=== PATIENT | male | born 1970 | race Caucasian/White ===

== ENCOUNTER → 2017-06-28 | Outpatient (CLI) | payer OTHER ==
--- NOTE | 2017-06-28 11:56 | ECHOS ---
STRESS ECHOCARDIOGRAM DATE OF SERVICE: 06/28/2017 MEDICATIONS:: Omeprazole. BASELINE HEART RATE: 81 BASELINE BLOOD PRESSURE: 113/68 MAXIMUM HEART RATE: 161 MAXIMUM BLOOD PRESSURE: 172/79 85% MPHR: 149 100% MPHR: 175 METS: 9.7 MAXIMUM STAGE REACHED: III TOTAL EXERCISE TIME: 8 minutes INDICATIONS: Chest pain. CLINICAL INFORMATION: The patient was exercised for a total period of 8 minutes. A peak heart rate of 161 was achieved. Maximum blood pressure 172/79 mmHg was noted. Resting EKG shows normal sinus rhythm with VT interval and QRS duration and normal ST-T waves. No ST-segment depression suggestive of ischemia is noted. The baseline echocardiographic images reveal normal left ventricular chamber size with normal left ventricular systolic function. In the immediate postexercise periods, normal increase in the wall thickness and contractility is noted. FINAL IMPRESSION: This stress echocardiographic study is negative for stress-induced ischemia. The EKG portion of the stress test is not suggestive of ischemia. MMODL / IJN: [id number] /
== END ==
LOC: RADNMMAIN 09:23
PROVIDERS: ATTEND Family Medicine
DX: R07.9 Chest pain, unspecified (principal)
CPT/HCPCS: 93017; 93350

== ENCOUNTER 2022-04-14 12:44 | Emergency (ER) | payer BC ==
[2022-04-14 13:15] VITALS: BP 145/92; PULSE 67; RESP 16; TEMP 98.1
--- NOTE | 2022-04-14 14:15 | XR ---
Right foot. HISTORY: Trauma. COMPARISON: None. TECHNIQUE: 3 views the right foot were seen. FINDINGS: There are minimally displaced fractures involving the proximal aspects of the third, fourth and fift h metatarsals. There are no focal intraosseous abnormalities. There is mild degeneration of the first tarsometatarsal joint. There is no radiopaque foreign body. IMPRESSION: Fractures involving the proximal aspects of the third, fourth and fifth metatarsals.
--- NOTE | 2022-04-14 15:24 | US ---
EXAMINATION TYPE: US venous doppler duplex LE RT DATE OF EXAM: 04/14/2022 3:06 PM COMPARISON: NONE CLINICAL HISTORY: swelling. lump calf area SIDE PERFORMED: Right TECHNIQUE: The lower extremity deep venous system is examined utilizing real time linear array sonog mk with graded compression, doppler sonography and color-flow sonography. VESSELS IMAGED: Common Femoral Vein Deep Femoral Vein Greater Saphenous Vein * Femoral Vein Popliteal Vein Small Saphenous Vein * Proximal Calf Veins (* superficial vessels) Right Leg: Negative for DVT Grayscale, color doppler, spectral doppler imaging performed of the deep veins of the lower extremiti es. There is normal flow, compressibility, vascular waveforms. Impression: No evidence of right lower extremity DVT from the common femoral vein to the proximal calf veins.
--- NOTE | 2022-04-14 15:27 | ED ---
Lower Extremity Injury HPI - General Chief Complaint: Extremity Injury, Lower Stated Complaint: rt foot injury Time Seen by Provider: 04/14/22 13:46 Source: patient Mode of arrival: ambulatory Limitations: no limitations - History of Present Illness Initial Comments: Patient is a 52-year-old male presenting with chief complaint of right foot and ankle pain and swelling. Patient was on vacation 5 days ago in the , when he twisted his ankle. He was given pain medication in a walking boot, however he has not been compliant. Patient states that at rest the pain is fine but the mall when he goes to move the foot or put any pressure on it there is a out of 10 pain. Located mainly on the dorsal surface of the foot. There has been increased swelling and some new bruising. Denies any numbness, tingling, weakness. - Related Data Allergies Allergy/AdvReac Type Severity Reaction Status Date / Time No Known Allergies Allergy Verified 04/14/22 13:15 Review of Systems ROS Statement: Those systems with pertinent positive or pertinent negative responses have been documented in the HPI. ROS Other: All systems not noted in ROS Statement are negative. Past Medical History Past Medical History: No Reported History History of Any Multi-Drug Resistant Organisms: None Reported Additional Past Surgical History / Comment(s): hand surgery Past Psychological History: No Psychological Hx Reported Smoking Status: Never smoker Past Alcohol Use History: None Reported Past Drug Use History: None Reported General Exam Limitations: no limitations General appearance: alert, in no apparent distress Head exam: Present: atraumatic, normocephalic, normal inspection Eye exam: Present: normal appearance, EOMI. Absent: scleral icterus, p eriorbital swelling Neck exam: Present: normal inspection Right Ankle exam: Present: tenderness, swelling, ecchymosis Foot/Toe exam: Present: tenderness, swelling, ecchymosis Neurovascular tendon exam: Present: no vascular compromise. Absent: sensory deficit Neurological exam: Present: alert, oriented X3, CN II-XII intact Psychiatric exam: Present: normal affect, normal mood Skin exam: Present: warm, dry, intact, normal color. Absent: rash Course Vital Signs 04/14/22 13:11 Temperature 98.1 F Pulse Rate 67 Respiratory 16 Rate Blood Pressure 145/92 O2 Sat by Pulse 97 Oximetry Medical Decision Making - Medical Decision Making Patient is a 52-year-old male presenting with chief complaint of right foot swelling, pain, bruising. Patient injured it while running on vacation about 5 days ago. is also concerned because the patient has a small bump to the calf and would like to rule out DVT. On examination there is tenderness across the ankle and dorsal aspect of the foot. Negative Homans sign, neurovascularly intact. X-ray shows fractures involving the proximal aspects of the third, fourth, and fifth metatarsals. Venous Doppler study shows no evidence of DVT. Patient is placed in posterior leg splint and instructed to follow-up with orthopedics. Follow-up with PCP. Report back to ER with any new or worsening symptoms. Discussed return parameters and answered all questions. Patient conveyed verbal understanding and agreed to the plan. I discussed this case in detail with my attending Dr. Noland Disposition Clinical Impression: Multiple closed fractures of metatarsal bone Disposition: HOME SELF-CARE Condition: Good Instructions (If sedation given, give patient instructions): Foot Fracture in Adults (ED) Additional Instructions: Follow up with orthopedics, call office on Saturday. Report back to ER with any new or worsening symptoms. Take Motrin and Tylenol as needed for pain control. Rest, ice, elevate the foot. Is patient prescribed a controlled substance at d/c from ED?: No Referrals: Connor Hollins DO [Doctor of Osteopathic Medicine] - 04/17/22 Victorino Vee MD [Primary Care Provider] - 04/17/22 Time of Disposition: 16:32
== END 2022-04-14 17:00 | disposition home or self-care (01) ==
LOC: EC 12:44
DX: S92.331A Displaced fracture of third metatarsal bone, right foot, initial encounter for closed fracture (principal); S92.341A Displaced fracture of fourth metatarsal bone, right foot, initial encounter for closed fracture; S92.351A Displaced fracture of fifth metatarsal bone, right foot, initial encounter for closed fracture; X50.1XXA Overexertion from prolonged static or awkward postures, initial encounter
CPT/HCPCS: 99283

== ENCOUNTER → 2024-03-17 | Outpatient (CLI) | payer BC ==
--- NOTE | 2024-04-14 12:58 | US ---
Site ID [facility] Patient Arcadio Castillo ID [id number] 1970 Age/Gender: 54Y, N/A Order # N/A Procedure US RENALS AND BLADDER Date 03/17/2024 4:15:00 PM EXAMINATION TYPE: US renals and bladder DATE OF EXAM: 04/04/2024 COMPARISON: NONE CLINICAL INDICATION: 54 year old with history of hematuria. EXAM MEASUREMENTS: Right Kidney: 10.4 x 5.3 x 5.4 cm Left Kidney: 11.1 x 5.4 x 4.4 cm Right Kidney: wnl Left Kidney: wnl Bladder: wnl Bilateral Jets seen: Yes There is no evidence for hydronephrosis at this point in time. Cortical medullary differentiation is maintained bilaterally. No nephrolithiasis is seen. No masses are identified. The urinary bladder is distended and anechoic. Bilateral ureteral jets are seen. IMPRESSION: No hydronephrosis or ultrasound evidence for renal lesion.
== END | disposition home or self-care (01) ==
LOC: RADUSWWP 03-15 12:00
PROVIDERS: ATTEND Internal Medicine
DX: R31.9 Hematuria, unspecified (principal); R82.89 Other abnormal findings on cytological and histological examination of urine
CPT/HCPCS: 76770

== ENCOUNTER → 2024-07-17 | Outpatient (CLI) | payer BC ==
--- NOTE | 2024-07-17 12:00 | CA ---
Exercise Nuclear Stress Test Report Name: Arcadio Castillo Exam Date: 07/17/2024 09:12 Exam Location: [place] Stress Ht (in): 72 Wt (lb): 194 BSA: 2.10 Ordering Phys: Aditi Damon MD Referring Phys: J CARLOS Technologist: Sam Weber Age: 54 Gender: M : 1970 Procedure CPT: Indications: I21.19 STEMI INVOLVING OTH CORONARY ARTERY OF INFE ICD-10 Codes: Patient History: Medications: Meds past 24 hrs: Pretest Chest Pain: STRESS TEST Adrian Protocol Exercise Duration (min:sec): 09:[address] Depressions (mm): Angina Score: Gaspar Score: Resting HR (bpm): 75 Peak HR (bpm): 149 Resting BP (mmHg): 151 / 90 Peak BP (mmHg): 149 / 88 MPHR: 168 Target HR: 143 % MPHR: 89 METS: 12.4 Total Dose: Peak Dose: Atropine: Double Product: 36085 BP Response: Stress Termination: Reached target heart rate Stress Symptoms: No chest pain or symptoms Stress Summary: ECG ANALYSIS Resting ECG: Stress ECG: CONCLUSIONS Patient underwent exercise stress Cardiolite with a Adrian protocol treadmill stress test. Patient exercised into Stage 3 for a total of 9 minutes and 30 seconds reaching a total of 12.4 METS. Patient's maximum heart rate was 149 which represented 88% age-predicted maximum heart rate. Stress EKG findings: At baseline patient's EKG showed normal sinus rhythm, normal axis, minimal J-point elevation in the inferior leads with no significant ST or T wave abnormalities. At peak exercise, EKG showed no significant change from baseline. Conclusions: 1. Normal EKG response to exercise without evidence of inducible ischemia. 2. Good exercise capacity. 3. Nuclear portion to be reported separately Dr. Alex Mccann DO (Electronically Signed) Final Date: 17 July 2024 11:59
--- NOTE | 2024-07-17 12:59 | NM ---
EXAMINATION TYPE: NM stress cardiolite complete DATE OF EXAM: 07/17/2024 COMPARISON: NONE CLINICAL INDICATION: Male, 54 years old with history of I21.19 STEMI INVOLVING OTH CORONARY ARTERY OF INFE; TECHNIQUE: After the intravenous administration of 10.5 mCi Tc 99m Sestamibi - Rest images obtained 45 minutes post injection. The patient exercised using a LAVINIA protocol and 1 minute prior to peak exercise was injected with 24.7 mCi Tc 99m Sestamibi - Stress images obtained 40 minutes post injecti on. FINDINGS: Targeted heart rate was achieved during performance of the study. Review of stress and rest SPECT sadia ges demonstrates no distinct perfusion abnormality. Gated analysis shows normal wall motion with an estimated left ventricular ejection fraction of 67 %. TID is calculated at 0.88, within normal limit s. IMPRESSION: No scintigraphic evidence for reversible ischemia [facility] Minerva Roblero, , 07/17/2024 12:57 PM
== END | disposition home or self-care (01) ==
LOC: RADNMMAIN 07:25
PROVIDERS: ATTEND Internal Medicine
DX: I21.19 ST elevation (STEMI) myocardial infarction involving other coronary artery of inferior wall (principal)
CPT/HCPCS: 93017; 78452; A9500

== ENCOUNTER 2025-02-17 08:58 | Day surgery (SDC) | payer BC ==
[2025-02-17 09:37] VITALS: TEMP 97.2
[2025-02-17] MEDS: IV FLUID CONTINUATION 1,000 ML IV ONE ×2 (09:41→09:57)
[2025-02-17] MEDS: LACTATED RINGERS 1,000 ML IV SCH (09:41)
[2025-02-17] MEDS ORDERED: PROPOFOL 10 MG/ML 20 ML VIAL IV ONE (09:59)
--- NOTE | 2025-02-17 10:10 | P.PCN ---
Date of Procedure: 02/17/25 Procedure(s) Performed: BRIEF HISTORY: Patient is a 55-year-old pleasant white male scheduled for an elective colonoscopy as a part of screening for colon cancer. PROCEDURE PERFORMED: Colonoscopy with snare polypectomy. PREOPERATIVE DIAGNOSIS: Screening for colon cancer. IV sedation per Anesthesia. PROCEDURE: After informed consent was obtained, the patient, was brought into the endoscopy unit. IV sedation was administered by Anesthesia under continuous monitoring. Digital rectal examination was normal. Initially the Olympus CF-160 flexible video colonoscope was then inserted in the rectum, gradually advanced into the cecum without any difficulty. Careful examination was performed as the scope was gradually being withdrawn. Ileocecal valve and the appendiceal orifice were visualized and appeared normal. Prep was excellent. Mucosa of the cecum, ascending colon, transverse colon, appeared in the descending colon there was a 1 cm linear long polyp that was removed by cold snare polypectomy. Rest of the descending colon, sigmoid colon, and rectum appeared normal. Retroflexion was performed in the rectum and no lesions were seen. The patient tolerated the procedure well. IMPRESSION: 1 cm linear long desscending colon polyp status post snare polypectomy Rest of the colon appeared normal RECOMMENDATIONS: Findings of this examination were discussed with the patient as well as his family.. To follow-up with the biopsy results. If the biopsy reveals adenoma he can have repeat colonoscopy in 3 years.
[2025-02-17 10:27] VITALS: RESP 16
[2025-02-17 10:41] VITALS: BP 130/79; PULSE 70
== END 2025-02-17 10:54 | disposition home or self-care (01) ==
LOC: ORWHC2ENDO 08:58
PROVIDERS: ATTEND Internal Medicine Gastroenterology
DX: Z12.11 Encounter for screening for malignant neoplasm of colon (principal); K63.5 Polyp of colon; I10 Essential (primary) hypertension; E78.5 Hyperlipidemia, unspecified; K21.9 Gastro-esophageal reflux disease without esophagitis; Z79.899 Other long term (current) drug therapy
CPT/HCPCS: 45385; J2704; 88305